=== PATIENT | male | born 1975 | race American Indian/Alaskan Native ===

== ENCOUNTER 2019-06-26 18:18 | Emergency (ER) | payer OTHER ==
[2019-06-26 18:50] VITALS: BP 141/76
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
[2019-06-26] MEDS ORDERED: ZOFRAN ONE (20:45)
[2019-06-26] MEDS ORDERED: TORADOL ONE (20:45)
[2019-06-26] MEDS ORDERED: ZOFRAN IV ONE (20:47)
[2019-06-26] MEDS ORDERED: TORADOL IV ONE (20:47)
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
== END 2019-06-26 22:48 | disposition home or self-care (01) ==
LOC: ED 18:18
DX: S29.011A Strain of muscle and tendon of front wall of thorax, initial encounter (principal); M62.830 Muscle spasm of back; M62.838 Other muscle spasm; F17.200 Nicotine dependence, unspecified, uncomplicated; V49.49XA Driver injured in collision with other motor vehicles in traffic accident, initial encounter; Y93.89 Activity, other specified; Y92.410 Unspecified street and highway as the place of occurrence of the external cause; Y99.8 Other external cause status
CPT/HCPCS: 71046; 72040; 72100; 96374; 96375; 99284; J1885; J2405